=== PATIENT | female | born 1980 | race Two or more races ===

== ENCOUNTER 2017-12-31 00:24 | Emergency (ER) | payer OTHER ==
[2017-12-31] MEDS ORDERED: Sodium Chloride 0.9% 1,000 ML IV STA (00:33)
[2017-12-31 01:09] LABS: BASO # 0.1 K/uL (0.0-0.2); BASO % 0.4 % (0.0-2.0); EOS # 0.4 K/uL (0.0-0.7); EOS % 2.9 % (0.0-4.0); HEMOGLOBIN 14.2 g/dL (12.0-16.0); LYMPH # 6.6 K/uL (1.0-4.3); LYMPH % 53.9 % (20.0-40.0); MEAN CELL VOLUME 84.6 fl (81.0-99.0); MEAN CORPUSCULAR HEMOGLOBIN 28.9 pg (27.0-31.0); MEAN CORPUSCULAR HGB CONC 34.2 g/dL (33.0-37.0); MEAN PLATELET VOLUME 8.9 fl (7.2-11.7); MONO # 0.7 K/uL (0.0-0.8); NEUT # 4.5 K/uL (1.8-7.0); NEUT % 36.8 % (50.0-75.0); NRBC % 0.1 % (0.0-0.0); RBC 4.91 Mil/uL (3.80-5.20); RED CELL DISTRIBUTION WIDTH 13.2 % (11.5-14.5); WHITE BLOOD COUNT 12.3 K/uL (4.8-10.8)
[2017-12-31 01:12] LABS: ALB/GLOB RATIO 1.5 (1.0-2.1); ALBUMIN 4.3 g/dL (3.5-5.0); ALT/SGPT 21 U/L (9-52); AST/SGOT 23 U/L (14-36); BLOOD UREA NITROGEN 13 mg/dl (7-17); CALCIUM 9.4 mg/dL (8.4-10.2); GFR NON-AFRICAN AMERICAN > 60
[2017-12-31] MEDS ORDERED: Potassium Chloride 20 mEq ER Tab PO ONE ×2 (02:18→04:45)
[2017-12-31 03:44] LABS: BARBITURATES, UR NEGATIVE (NEGATIVE); BENZODIAZEPINES, UR NEGATIVE (NEGATIVE); OPIATES, UR NEGATIVE (NEGATIVE); PHENCYCLIDINE, UR NEGATIVE (NEGATIVE)
--- NOTE | 2017-12-31 03:48 | ED PDOC ---
HPI: Psych/Substance Abuse Time Seen by Provider: 12/31/17 00:26 Chief Complaint (Nursing): Alcohol Ingestion Chief Complaint (Provider): alcohol intoxication History Per: EMS Additional Complaint(s): Female of unknown age brought in by EMS for suspected alcohol intoxication. Patient found sleeping on side walk, difficult to arouse. HPI slightly limited due to patient's current state. Past Medical History Reviewed: Historical Data, Nursing Documentation, Vital Signs Vital Signs: Last Vital Signs Temp 97.0 F L 12/31/17 00:25 Pulse 75 12/31/17 00:25 Resp 16 12/31/17 00:25 BP 130/81 12/31/17 00:25 Pulse Ox 96 12/31/17 00:25 - Family History Family History: States: No Known Family Hx - Allergies Allergies/Adverse Reactions: Allergies Allergy/AdvReac Type Severity Reaction Status Date / Time Unobtainable Allergy Verified 12/31/17 00:33 Review of Systems Review Of Systems: ROS cannot be obtained secondary to pt's inabilty to answer questions. Physical Exam - Reviewed Nursing Documentation Reviewed: Yes Vital Signs Reviewed: Yes - Physical Exam Appears: Positive for: Well, Non-toxic, No Acute Distress (sleeping) Head Exam: Positive for: ATRAUMATIC, NORMAL INSPECTION, NORMOCEPHALIC Skin: Positive for: Diaphoresis Eye Exam: Positive for: EOMI, PERRL ENT: Positive for: Normal ENT Inspection Cardiovascular/Chest: Positive for: Regular Rate, Rhythm Respiratory: Positive for: Normal Breath Sounds Gastrointestinal/Abdominal: Positive for: Normal Exam Back: Positive for: Normal Inspection Extremity: Positive for: Normal ROM Neurologic/Psych: Positive for: Alert (responds to painful stimuli) - Laboratory Results Result Diagrams: 12/31/17 00:58 12/31/17 00:58 - ECG O2 Sat by Pulse Oximetry: 96 - Progress ED Course And Treament: Patient actively vomiting during exam; labs, IV fluids, IV zofran, CT head ordered EXAM: CT Head Without Intravenous Contrast EXAM DATE/TIME: 12/31/2017 1:13 AM CLINICAL HISTORY: 24 years old, female; Signs and symptoms; Altered mental status/memory loss; Additional info: AMS TECHNIQUE: Axial computed tomography images of the head/brain without intravenous contrast. All CT scans at this facility use at least one of these dose optimization techniques: automated exposure control; mA and/or kV adjustment per patient size (includes targeted exams where dose is matched to clinical indication); or iterative reconstruction. Coronal and sagittal reformatted images were created and reviewed. COMPARISON: No relevant prior studies available. FINDINGS: Brain: Normal. No hemorrhage. No significant white matter disease. No edema. Ventricles: Normal. No ventriculomegaly. Bones/joints: Normal. No acute fracture. Sinuses: Minimal secretions in the left sphenoid sinus No acute sinusitis. Mastoid air cells: Normal as visualized. No mastoid effusion. Soft tissues: Normal. IMPRESSION: No acute findings 3:40 On re-eval, patient arousable to verbal stimuli; states she "Drank too much" tonight; denies drug use. 5:00 Patient awake, alert, oriented x3. Ambulating steady gait. Tolerated PO Potassium PO given. Advised follow up PMD 2-3 days Return precautions given Patient demonstrates full understanding of discharge instructions. Patient requires no further intervention in the ED and is stable for discharge at this time Disposition - Clinical Impression Clinical Impression: Alcohol intoxication - Patient ED Disposition Is Patient to be Admitted: No Counseled Patient/Family Regarding: Studies Performed, Diagnosis, Need For Followup - Disposition Disposition: Routine/Home Disposition Time: 05:00 Condition: IMPROVED Instructions: Alcohol Use - When Is Drinking a Problem?
[2017-12-31 04:58] VITALS: BP 122/58; PULSE 71; RESP 19; TEMP 98.7
--- NOTE | 2017-12-31 08:56 | CT ---
Date of service: 12/31/2017 PROCEDURE: CT HEAD WITHOUT CONTRAST. HISTORY: AMS COMPARISON: None available. TECHNIQUE: Axial computed tomography images were obtained through the head/brain without intravenous contrast. Radiation dose: Total exam DLP = mGy-cm. This CT exam was performed using one or more of the following dose reduction techniques: Automated exposure control, adjustment of the mA and/or kV according to patient size, and/or use of iterative reconstruction technique. FINDINGS: HEMORRHAGE: No intracranial hemorrhage. BRAIN: No mass effect or edema. No atrophy or chronic microvascular ischemic changes. VENTRICLES: Unremarkable. No hydrocephalus. CALVARIUM: Unremarkable. PARANASAL SINUSES: Unremarkable as visualized. No significant inflammatory changes. MASTOID AIR CELLS: Unremarkable as visualized. No inflammatory changes. OTHER FINDINGS: None. IMPRESSION: Normal CT of the Head.
--- NOTE | 2017-12-31 17:41 | CARD ---
APPROVED REPORT Date of service: 12/31/2017 EKG Measurement Heart [id number] <Conclusion> Normal sinus rhythm Normal ECG
[2018-01-01 02:36] VITALS: O2SAT 96
== END 2017-12-31 07:10 | disposition home or self-care (01) ==
LOC: EDBD 00:24 → MERGE 00:24 → H.ER 00:24
DX: F10.129 Alcohol abuse with intoxication, unspecified (principal); S09.90XA Unspecified injury of head, initial encounter; Y92.89 Other specified places as the place of occurrence of the external cause; R11.10 Vomiting, unspecified
CPT/HCPCS: 70450; 80053; 80320; 80324; 80345; 80346; 80349; 80353; 80358; 80361; 81025; 82948; 83992; 85025; 93005; 96374; 99283; J2405; J7030